=== PATIENT | male | born 1955 | race American Indian/Alaskan Native ===

== ENCOUNTER 2017-06-24 18:45 | Emergency (ER) | payer SELFPAY ==
[2017-06-24] MEDS ORDERED: TYLENOL PO ONE (20:34)
[2017-06-24] MEDS ORDERED: TYLENOL ONE (20:37)
[2017-06-24 21:10] LABS: Hematocrit 35.9 % (35.5-45.6); Mean Corpuscular HGB Conc 34 % (32-34); Mean Corpuscular Hemoglobin 30 pg (28-32); Mean Corpuscular Volume 88 fl (84-94); Platelet Count 159 K/mm3 (140-440); Red Blood Count 4.08 M/mm3 (3.65-5.03); Red Cell Distribution Width 16.6 % (13.2-15.2)
[2017-06-24 21:18] LABS: BUN/Creatinine Ratio 13; Blood Urea Nitrogen 16 mg/dL (9-20); Calcium 9.1 mg/dL (8.4-10.2); Hemolysis Index 5
[2017-06-24 22:20] LABS: Total Cells Counted 100
[2017-06-24 22:21] LABS: Platelet Estimate Consistent w Auto; RBC Morphology Normal
[2017-06-25 04:20] VITALS: BP 176/101
== END 2017-06-25 04:20 | disposition left against medical advice (07) ==
LOC: ED 18:45
DX: Z53.21 Procedure and treatment not carried out due to patient leaving prior to being seen by health care provider (principal)
CPT/HCPCS: 36415; 80048; 83880; 85007; 85025; 99283